=== PATIENT | female | born 1950 | race American Indian/Alaskan Native ===

== ENCOUNTER 2016-09-28 10:28 | Outpatient (CLI) | payer MEDICARE ==
--- NOTE | 2016-09-28 13:48 | Mammography Report ---
Bilateral mammogram: Compared to and 04/08/15 . CAD study utilized. Findings: Predominance adipose tissue bilaterally. An ill-defined density left posterior mid breast reveals no significant interval change. Calcifications right breast reveals no significant interval change compared to 04/08/15. However indeterminate and suspicious calcifications. Left subareolar density is new and not seen in previous study. Impression: Biopsy recommended of indeterminate calcifications right breast. Biopsy recommended of subareolar density left breast. BI-RADS CATEGORY: 4 = Suspicious ACR BI-RADS MAMMOGRAPHIC CODES: 0 = Needs additional imaging evaluation; 1 = Negative; 2 = Benign; 3 = Probably benign; 4 = Suspicious; 5 = Malignant; 6 = Known biopsy-proven malignancy COMMENT: 1. Dense breast tissue, i.e., adenosis, fibrocystic changes, etc., may obscure an underlying neoplasm. 2. Approximately 10% of cancers are not detected with mammography. 3. A negative mammography report should not delay biopsy if a clinically suspicious mass is present.
== END 2016-09-28 10:29 | disposition home or self-care (01) ==
LOC: SPVWC 10:28
PROVIDERS: ATTEND Surgery
DX: Z12.31 Encounter for screening mammogram for malignant neoplasm of breast (principal); I10 Essential (primary) hypertension; E78.00 Pure hypercholesterolemia, unspecified; Z87.891 Personal history of nicotine dependence; Z90.710 Acquired absence of both cervix and uterus; Z98.890 Other specified postprocedural states
CPT/HCPCS: 77067; G0202

== ENCOUNTER 2016-10-12 14:16 | Outpatient (CLI) | payer MEDICARE ==
--- NOTE | 2016-10-12 16:01 | Mammography Report ---
BILATERAL DIGITAL DIAGNOSTIC MAMMOGRAM and LEFT BREAST ULTRASOUND: 10/12/16 14:16:00 CLINICAL: Recalled for right calcifications, right architectural distortion and bilateral asymmetries. COMPARISON:09/28/16 screening FINDINGS: Bilateral spot compression views and right LM and CC magnification views were performed. Satisfactory effacement of right asymmetries on the spot views. Right magnification views demonstrate a group of lower outer dystrophic calcifications and benign scar at the previous surgical excision. Satisfactory effacement of the left central asymmetry in the CC view. A retroareolar circumscribed asymmetry persists on the left CC spot view. Ultrasound of the retroareolar left breast demonstrated an oval benign cyst at 1 o'clock one centimeters from the nipple measuring 1.3 x 1.2 x 0.8 cm. It correlates with the mammographic density. IMPRESSION: No mammographic evidence of malignancy.Benign right calcifications and a benign left retroareolar cyst. BI-RADS CATEGORY: 2 - - Benign RECOMMENDATION: Routine mammographic screening in one year. ACR BI-RADS MAMMOGRAPHIC CODES: 0 = Needs additional imaging evaluation; 1 = Negative; 2 = Benign; 3 = Probably benign; 4 = Suspicious; 5 = Malignant; 6 = Known biopsy-proven malignancy COMMENT: 1. Dense breast tissue, i.e., adenosis, fibrocystic changes, etc., may obscure an underlying neoplasm. 2. Approximately 10% of cancers are not detected with mammography. 3. A negative mammography report should not delay biopsy if a clinically suspicious mass is present. COMMENT: Patient follow-up letters are generated via our [employer] application.
== END 2016-10-12 14:17 | disposition home or self-care (01) ==
LOC: SPVWC 14:16
PROVIDERS: ATTEND Surgery
DX: N60.12 Diffuse cystic mastopathy of left breast (principal); N60.11 Diffuse cystic mastopathy of right breast; N60.81 Other benign mammary dysplasias of right breast; N60.02 Solitary cyst of left breast; R92.1 Mammographic calcification found on diagnostic imaging of breast; I10 Essential (primary) hypertension; E78.00 Pure hypercholesterolemia, unspecified; D64.9 Anemia, unspecified; Z87.891 Personal history of nicotine dependence
CPT/HCPCS: 76642; G0204; 77066

== ENCOUNTER → 2017-09-27 | Outpatient (CLI) | payer MEDICARE ==
--- NOTE | 2017-09-27 11:43 | Mammography Report ---
BILATERAL DIGITAL SCREENING MAMMOGRAM with CAD : 09/27/17 10:55:00 CLINICAL: Routine screening.Previous right benign surgical biopsy. COMPARISON:10/12/16, 09/28/16 and 09/15/15 FINDINGS: The breasts are heterogeneously dense, which may obscure small masses.Stable right postsurgical scar. No mass, suspicious architectural distortion or suspicious calcifications. IMPRESSION: No mammographic evidence of malignancy. BI-RADS CATEGORY: 2 -- Benign RECOMMENDATION: Routine mammographic screening in one year. COMMENT: Patient follow-up letters are generated by our [employer] application.
== END | disposition home or self-care (01) ==
LOC: SPVWC 10:55
PROVIDERS: ATTEND Surgery
DX: Z12.31 Encounter for screening mammogram for malignant neoplasm of breast (principal); E78.00 Pure hypercholesterolemia, unspecified; I10 Essential (primary) hypertension; M19.90 Unspecified osteoarthritis, unspecified site; F17.210 Nicotine dependence, cigarettes, uncomplicated; Z90.710 Acquired absence of both cervix and uterus; Z90.722 Acquired absence of ovaries, bilateral
CPT/HCPCS: 77067

== ENCOUNTER 2018-10-03 14:19 | Outpatient (CLI) | payer MEDICARE ==
--- NOTE | 2018-10-03 15:40 | Mammography Report ---
BILATERAL DIGITAL SCREENING MAMMOGRAM WITH CAD INDICATION: Routine screening mammography. TECHNIQUE: Digital bilateral 2D mammography was obtained in the craniocaudal and mediolateral obliq ue projections. This examination was interpreted with the benefit of Computer-Aided Detection analysi s. COMPARISON: 09/27/2017 and 10/12/2016 FINDINGS: Breast Density: The breasts are heterogeneously dense, which may obscure small masses. No mass, architectural distortion or suspicious calcifications. A left summation density on the CC vi ew is unchanged compared to previous exams. IMPRESSION:No mammographic evidence of malignancy. BI-RADS Category 2: Benign. No mammographic evidence of malignancy. Recommend routine screening ma mmography in one year. A "normal" or negative report should not discourage follow up or biopsy of a clinically significant f inding. A written summary of these findings will be mailed to the patient. The patient will be entered into a mammography reporting system which will generate a reminder letter for the patient's next appointmen t at the appropriate interval. The [employer] recommends yearly mammograms starting at age 40 and continuing as l rajwinder as a woman is in good health. Breast MRI is recommended for women with an approximate 20-25% or greater lifetime risk of breast cancer, including women with a strong family history of breast or ova reji cancer or who have been treated for Hodgkin's disease. Signer Name: Trev Cespedes MD Signed: 10/03/2018 3:36 PM Workstation Name: [id number]
== END 2018-10-03 14:20 | disposition home or self-care (01) ==
LOC: SPVWC 14:19
PROVIDERS: ATTEND Surgery
DX: Z12.31 Encounter for screening mammogram for malignant neoplasm of breast (principal); E78.00 Pure hypercholesterolemia, unspecified; I10 Essential (primary) hypertension; Z90.710 Acquired absence of both cervix and uterus
CPT/HCPCS: 77067

== ENCOUNTER 2019-10-09 13:18 | Outpatient (CLI) | payer MEDICARE ==
--- NOTE | 2019-10-09 14:03 | Mammography Report ---
DIGITAL SCREENING MAMMOGRAM WITH CAD, 10/09/2019 INDICATION: Routine screening mammography. TECHNIQUE: Digital bilateral 2D mammography was obtained in the craniocaudal and mediolateral obliq ue projections. This examination was interpreted with the benefit of Computer-Aided Detection analysi s. COMPARISON: 09/27/2017, 10/03/2018 FINDINGS: Breast Density: There are scattered areas of fibroglandular density. There is no evidence of dominant mass, suspicious calcifications or architectural distortion in eithe r breast. Postsurgical scar is noted in the right breast. Focal asymmetry in the 12:00 posterior left breast is stable. No significant interval change in the appearance of the mammogram. IMPRESSION: No evidence of malignancy. Follow up recommendation: Routine yearly BI-RADS Category 2: Benign. A "normal" or negative report should not discourage follow up or biopsy of a clinically significant f inding. A written summary of these findings will be mailed to the patient. The patient will be entered into a mammography reporting system which will generate a reminder letter for the patient's next appointmen t at the appropriate interval. The [employer] recommends yearly mammograms starting at age 40 and continuing as l rajwinder as a woman is in good health. Breast MRI is recommended for women with an approximate 20-25% or greater lifetime risk of breast cancer, including women with a strong family history of breast or ova reji cancer or who have been treated for Hodgkin's disease. Signer Name: Kylie Chamorro MD Signed: 10/09/2019 1:59 PM Workstation Name: [email or web address]
== END 2019-10-09 13:19 | disposition home or self-care (01) ==
LOC: SPVWC 13:18
PROVIDERS: ATTEND Surgery
DX: Z12.31 Encounter for screening mammogram for malignant neoplasm of breast (principal)
CPT/HCPCS: 77067

== ENCOUNTER 2020-11-13 14:11 | Outpatient (CLI) | payer MEDICARE ==
--- NOTE | 2020-11-14 08:03 | Mammography Report ---
DEXA BONE DENSITY SCAN INDICATION: POST MENOPAUSE Z78.0 COMPARISON: None available. LUMBAR SPINE (L1-L4): Bone mineral density (BMD) is 1.402 g/cm2. T-score is 2.3 (standard deviations of Young Adult mean). Z-score is 4.8 (standard deviations of Age Matched mean). LEFT FEMORAL NECK: Bone mineral density (BMD) is 0.777 g/cm2. T-score is -1.2 (standard deviations of Young Adult mean). Z-score is 0.3 (standard deviations of Age Matched mean). IMPRESSION: 1. WHO Classification: Osteopenia. Fracture Risk: Increased. Signer Name: Sudheer Blake MD Signed: 11/14/2020 7:58 AM Workstation Name: [id number]
--- NOTE | 2020-11-14 08:10 | Mammography Report ---
DIGITAL SCREENING MAMMOGRAM WITH CAD, 11/14/2020 CLINICAL INFORMATION / INDICATION: Routine screening mammography. SCREENING MAMMO Z12.31 TECHNIQUE: Digital bilateral 2D mammography was obtained in the craniocaudal and mediolateral obliqu e projections. This examination was interpreted with the benefit of Computer-Aided Detection analysis . COMPARISON: 10/09/2019 FINDINGS: Breast Density: There are scattered areas of fibroglandular density. No dominant mass, suspicious calcifications, or architectural distortion in either breast. Largely unchanged nodular densities in the breasts, commonly fibroglandular or fibrocystic change. IMPRESSION: No mammographic evidence of malignancy. Follow up recommendation: Routine yearly BI-RADS Category 2: Benign. A "normal" or negative report should not discourage follow up or biopsy of a clinically significant f inding. A written summary of these findings will be mailed to the patient. The patient will be entered into a mammography reporting system which will generate a reminder letter for the patient's next appointmen t at the appropriate interval. The [employer] recommends yearly mammograms starting at age 40 and continuing as l rajwinder as a woman is in good health. Breast MRI is recommended for women with an approximate 20-25% or greater lifetime risk of breast cancer, including women with a strong family history of breast or ova reji cancer or who have been treated for Hodgkin's disease. Signer Name: Rickie Cruz MD Signed: 11/14/2020 8:06 AM Workstation Name: [id number]
== END 2020-11-13 14:12 | disposition home or self-care (01) ==
LOC: SPVWC 14:11
PROVIDERS: ATTEND Family Medicine
DX: Z12.31 Encounter for screening mammogram for malignant neoplasm of breast (principal); M85.88 Other specified disorders of bone density and structure, other site; Z78.0 Asymptomatic menopausal state
CPT/HCPCS: 77067; 77080